=== PATIENT | female | born 1960 | race Caucasian/White ===

== ENCOUNTER 2021-07-09 00:33 | Inpatient (IN) | payer MEDICARE, OTHER ==
[~2021-07-09] VITALS: Ht 154.9 cm; Wt 86.2 kg
--- NOTE | 2021-07-09 00:46 | NUR ---
PT KEILY WITH C/O DIARRHEA AND "FEELING SICK" TEMP:100.7. ADVERTISING SALES CONSULTANT REPORTS SHE HAS "BEEN DRINKING ALCOHOL ALL DAY"
[2021-07-09] MEDS ORDERED: ONDANSETRON HCL/PF 4 MG/2 ML VIAL IVP ONE (01:00)
[2021-07-09] MEDS ORDERED: IV NS 0.9% 1,000 ML BAG IV ONE ×2 (01:00→02:30)
--- NOTE | 2021-07-09 01:18 | NUR ---
FLYING INSTRUCTOR AT BEDSIDE
[2021-07-09] MEDS ORDERED: ONDANSETRON HCL/PF 4 MG/2 ML VIAL ONE (01:19)
--- NOTE | 2021-07-09 01:45 | NUR ---
INITIATED LAC #20G ON NS
[2021-07-09 01:51] LABS: ALANINE AMINOTRANSFERASE 11 U/L (12-78); ALBUMIN 3.3 g/dL (3.4-5.0); ALKALINE PHOSPHATASE 114 U/L (46-116); ASPARTATE AMINOTRANSFERASE 25 U/L (15-37); BILIRUBIN,DIRECT 0.1 mg/dL (0.0-0.2); BILIRUBIN,TOTAL 0.6 mg/dL (0.2-1.0); CALCIUM, SERUM 8.4 mg/dL (8.5-10.1); CARBON DIOXIDE 23 mmol/L (21-32); CHLORIDE 99 mmol/L (98-107); CREATININE 0.5 mg/dL (0.6-1.3); GLUCOSE 144 mg/dL (74-106); LIPASE 899 U/L (73-393); SODIUM SERUM 137 mmol/L (136-145); TOTAL PROTEIN, SERUM 7.8 g/dL (6.4-8.2); UREA NITROGEN, BLOOD 9 mg/dL (7-18)
--- NOTE | 2021-07-09 01:51 | NUR ---
COVID SWAB COLLECTED AND SENT TO LAB PT TAKEN TO CT
--- NOTE | 2021-07-09 01:58 | NUR ---
LACTIC ACID 2.2
[2021-07-09] MEDS ORDERED: PIPERACILLIN /TAZOBACTAM 3.375 G VIAL IV ONE (02:16)
[2021-07-09 02:19] LABS: BASOPHILS # (AUTO) 0.1 K/uL (0.0-0.2); BASOPHILS % (AUTO) 1.2 % (0.0-2.0); EOSINOPHILS % (AUTO) 0.1 % (0.0-6.0); HEMATOCRIT 31 % (33-45); HEMOGLOBIN 9.9 g/dL (11.5-14.8); LYMPHOCYTES # (AUTO) 0.2 K/uL (0.8-4.8); LYMPHOCYTES % (AUTO) 1.9 % (20.0-44.0); MEAN CORPUSCULAR HGB CONC 32 g/dl (31.0-36.0); MEAN CORPUSCULAR VOLUME 73 fL (82-100); MONOCYTES % (AUTO) 0.3 % (2.0-12.0); NEUTROPHILS # (AUTO) 11.6 K/uL (1.8-8.9); NEUTROPHILS % (AUTO) 96.5 % (43.0-81.0); PLATELET COUNT (AUTO) 413 K/uL (150-450); RED BLOOD CELL COUNT(AUTO) 4.23 MIL/uL (4.0-5.2)
[2021-07-09] MEDS ORDERED: PIPERACILLIN /TAZOBACTAM 3.375 G in IV D5W 50 ML IV ONE (02:30)
--- NOTE | 2021-07-09 02:50 | NUR ---
INSERTED STRAIGHT CATH; NO URINE OUT PUT. COVID SWAB COLLECTED AND SENT TO LAB
--- NOTE | 2021-07-09 03:26 | NUR ---
URINE SAMPLE COLLECTED AND SENT TO LAB
[2021-07-09] MEDS ORDERED: ACETAMINOPHEN 325 MG TABLET PO PRN (03:30)
[2021-07-09] MEDS ORDERED: MAGNESIUM HYDROXIDE 30 ML UDC PO PRN (03:30)
[2021-07-09] MEDS: ENOXAPARIN SODIUM 40 MG/0.4 ML DISP.SYRIN SQ SCH (03:30)
[2021-07-09] MEDS ORDERED: IV NS 0.9% 1,000 ML IV PRN (03:30)
[2021-07-09] MEDS ORDERED: MAG HYDROX/AL HYDROX/SIMETH 30 ML UDC PO PRN (03:30)
[2021-07-09] MEDS ORDERED: ONDANSETRON HCL/PF 4 MG/2 ML VIAL IVP PRN (03:30)
[2021-07-09] MEDS ORDERED: Z GUARD REMEDY 2 OZ OINT TP PRN (03:30)
[2021-07-09 04:00] LABS: BILIRUBIN,URINE Negative (NEGATIVE); COLOR,URINE YELLOW (YELLOW); LEUKOCYTE ESTERASE ,URINE Negative (NEGATIVE); NITRITE, URINE Negative (NEGATIVE); PROTEIN,URINE Negative (NEGATIVE); UGLUCOSE Negative (NEGATIVE); UROBILINOGEN,URINE 0.2 EU/dL (0.2)
[2021-07-09] MEDS ORDERED: ACETAMINOPHEN 325 MG TABLET PO ONE (04:00)
[2021-07-09] MEDS ORDERED: LORAZEPAM INJ 2 MG/ML VIAL IV ONE (04:30)
[2021-07-09 04:31] LABS: BACTERIA,URINE Few /HPF (None Seen); SQUAMOUS EPITHELIAL CELL,UR Few /HPF (None Seen); WBC,URINE 0-2 /HPF (0-3)
[2021-07-09 04:32] LABS: MUCUS,URINE Few /LPF (None Seen)
[2021-07-09] MEDS ORDERED: ENOXAPARIN SODIUM 40 MG/0.4 ML DISP.SYRIN SQ ONE (05:30)
[2021-07-09] MEDS ORDERED: MAG HYDROX/AL HYDROX/SIMETH 30 ML UDC ONE (05:37)
--- NOTE | 2021-07-09 05:40 | NUR ---
PT C/O STOMACH CRAMPING ADMINISTERED MAALOX ORDERED.
[2021-07-09] MEDS ORDERED: PANTOPRAZOLE 40 MG TABLET.DR PO SCH (07:30)
--- NOTE | 2021-07-09 07:52 | NUR ---
The patient is sleeping in bed#7. Responsive to verbal stimuli. Respiration regular and unlabored. In no apparent distress. Attached to the monitor.
[2021-07-09] MEDS ORDERED: PHARMACY ADD 1 AMP MVI TO IVF DAILY ONE BAG XX PRN (10:00)
--- NOTE | 2021-07-09 10:10 | NUR ---
Dr Bocanegra is made aware of lactic acid level of 3.2. Per Dr Bocanegra IVNS fluids rates is changed from 75mL/hr to 100 mL/hr prn. The order is read back, verified. Noted and carried out.
[2021-07-09] MEDS: MVI ADULT 10ML VIAL = 1AMP 10 ML in IV NS 0.9% 1,000 ML IV PRN (10:13)
[2021-07-09] MEDS: Thiamine 100 MG in IV D5W 50 ML IV SCH (10:31)
--- NOTE | 2021-07-09 10:35 | NUR ---
Note undone in EDM - 07/09/21 at 1037 by ENOCH IV removed. Catheter intact and site benign. Pressure and 4x4 applied to site. No bleeding noted.Patient discharged to home in stable condition. Written and verbal after care instructions given. Patient verbalizes understanding of instruction.
[2021-07-09] MEDS: PIPERACILLIN /TAZOBACTAM 3.375 G in IV D5W 100 ML IV SCH ×2 (11:06→20:22)
[2021-07-09] MEDS: Folic acid 1 MG in IV D5W 50 ML IV SCH (11:06)
[2021-07-09] MEDS ORDERED: LORAZEPAM INJ 2 MG/ML VIAL ONE (11:08)
--- NOTE | 2021-07-09 11:45 | NUR ---
NPO ORDER PER DR REED. THE ORDER IS READ BACK, VERIFIED. NOTED AND CARRIED OUT.
--- NOTE | 2021-07-09 13:11 | NUR ---
PT IN BED RESTING WITH EYES CLOSED. PT IS EASILY ARROUSABLE. NAD NOTED.
--- NOTE | 2021-07-09 17:05 | NUR ---
room 103
--- NOTE | 2021-07-09 17:15 | NUR ---
report given to mimi ansari for brielle
--- NOTE | 2021-07-09 18:29 | NUR ---
pt [facility] and rn at bedside w/ acls protocol. nad noted
--- NOTE | 2021-07-09 18:33 | NUR ---
RN NOTES RECEIVED PT FROM ER, DX SEPSIS, AOX 3, FOUL MOUTHED AND VERBALLY ABUSIVE, MADE COMFORTABLE. PT IS NPO, VITAL SIGNS TAKEN AND RECORDED. WILL ENDORSE TO NEXT SHIFT FOR MATTHEW
[2021-07-09 18:36] VITALS: BP 161/82
--- NOTE | 2021-07-09 21:00 | NUR ---
RN NOTE RECEIVED PT SLEEPING AROUSES WITH VERBAL TACTILE. PT LIMITED TO CONVERSATION, DOES NOT WANT TO BE BOTHERED, LIMITED INFORMATION/HISTORY WAS GIVEN. REFUSES VITAL SIGNS. EXPLAINED RISKS AND BENEFITS. NO S/SX OF DISTRESS NOTED. COMPLAINS OF ABDOMINAL PAIN, REFUSED TO TAKE TYLENOL. PT IS CONTINENT TO BOTH BOWEL AND BLADDER, USES BEDPAN, PER PT SHE IS UNABLE TO WALK DUE TO HIP REPLACEMENT, BUT ABLE TO TURN HERSELF IN THE BED. NEW MIDLINE ON ADAMS WAS INSERTED, FLUSHES WELL. ALL SAFETY MEASURES IN PLACE PER PROTOCOL. CALL LIGHT WITHIN REACH. Addendum: 07/09/21 at 2232 by HUMPHREY KAM RN CORRECTION, MIDLINE ON LEFT UPPER ARM.
[2021-07-09] MEDS: LORAZEPAM INJ 2 MG/ML VIAL IV PRN (22:22)
[2021-07-09] MEDS: IV NS 0.9% 1,000 ML IV PRN (22:30)
[2021-07-10] MEDS: PIPERACILLIN /TAZOBACTAM 3.375 G in IV D5W 100 ML IV SCH ×3 (02:57→18:18)
[2021-07-10] MEDS: ENOXAPARIN SODIUM 40 MG/0.4 ML DISP.SYRIN SQ SCH (03:23)
[2021-07-10 04:00] VITALS: BP 135/84
[2021-07-10] MEDS: LORAZEPAM INJ 2 MG/ML VIAL IV PRN ×4 (05:30→21:29)
[2021-07-10 06:59] LABS: BASOPHILS # (AUTO) 0.1 K/uL (0.0-0.2); BASOPHILS % (AUTO) 0.8 % (0.0-2.0); EOSINOPHILS % (AUTO) 3.4 % (0.0-6.0); HEMATOCRIT 26 % (33-45); HEMOGLOBIN 8.2 g/dL (11.5-14.8); LYMPHOCYTES # (AUTO) 0.9 K/uL (0.8-4.8); MEAN CORPUSCULAR HGB CONC 32 g/dl (31.0-36.0); MEAN CORPUSCULAR VOLUME 74 fL (82-100); MONOCYTES # (AUTO) 0.4 K/uL (0.1-1.30); MONOCYTES % (AUTO) 6.9 % (2.0-12.0); NEUTROPHILS # (AUTO) 4.4 K/uL (1.8-8.9); NEUTROPHILS % (AUTO) 73.9 % (43.0-81.0); PLATELET COUNT (AUTO) 322 K/uL (150-450); RED BLOOD CELL COUNT(AUTO) 3.51 MIL/uL (4.0-5.2); WHITE BLOOD COUNT (AUTO) 5.9 K/uL (4.3-11.0)
--- NOTE | 2021-07-10 07:00 | NUR ---
RN NOTE PT ABLE TO MAKE NEEDS KNOWN. PT REFUSED TO HAVE SKIN PROBLEM BE PICTURE TAKEN. PT UNCOOPERATIVE AT FIRST, GETTING MAD AT ANY THING, SCREAMING TO STAFFS AND BEING RUDE. PT CALMED DOWN, WAS ABLE TO GET VITAL SIGNS, DUE MEDS WERE GIVEN. REMAIN AFEBRILE. PT REQUESTED FOR ATIVAN FOR ANXIETY/AGITATION. WAS GIVEN ORDERED. CONTINUE ON IVFLUIDS, 1 BAG OF MVI WAS GIVEN. ALL SAFETY MEASURES MAINTAINED. WILL ENDORSE TO NEXT SHIFT NURSE FOR MATTHEW.
[2021-07-10 07:10] LABS: ALBUMIN 2.5 g/dL (3.4-5.0); BILIRUBIN,TOTAL 0.5 mg/dL (0.2-1.0); CALCIUM, SERUM 7.9 mg/dL (8.5-10.1); CREATININE 0.5 mg/dL (0.6-1.3); PHOSPHORUS 3.3 mg/dL (2.5-4.9); POTASSIUM 3.3 mmol/L (3.5-5.1)
[2021-07-10 07:18] LABS: THYROID STIMULATING HORMONE 2.005 uIU/mL (0.358-3.74)
--- NOTE | 2021-07-10 07:20 | NUR ---
RN NOTE PATIENT OBSERVED IN BED AWAKE , ALERT AND ORIENTED X4 ABLE TO VERBALIZE NEEDS, NPO AT THIS TIME WILL CLARIFY WITH MD, WITH LEFT UPPER ARM MIDLINE, PATENT AND INFUSING WEL PATIENT ON NS @75CC/HR. SAFETY MEASURE OBSERVED, BED WHEELS LOCK, CALL LIGHT WITHIN REACH, WILL CONTINUE TO MONITOR.
[2021-07-10 08:00] VITALS: BP 135/84
[2021-07-10] MEDS: PANTOPRAZOLE 40 MG VIAL IV SCH (09:41)
[2021-07-10] MEDS: POTASSIUM CL. PREMIX PERIPHER. 50 ML IV SCH ×3 (09:41→12:55)
[2021-07-10] MEDS: IV NS 0.9% 1,000 ML IV PRN ×2 (10:28→18:02)
[2021-07-10] MEDS: MVI ADULT 10ML VIAL = 1AMP 10 ML in IV NS 0.9% 1,000 ML IV PRN (11:23)
[2021-07-10] MEDS: Folic acid 1 MG in IV D5W 50 ML IV SCH (11:23)
[2021-07-10] MEDS: Thiamine 100 MG in IV D5W 50 ML IV SCH (11:47)
[2021-07-10 12:28] LABS: BAND % (MANUAL) 2 % (0.0-5.0); EOSINOPHILS % (MANUAL) 3 % (0-4); LYMPHOCYTES % (MANUAL) 13 % (16-48); MONOCYTES % (MANUAL) 3 % (0-11.0); NEUTROPHILS % (MANUAL) 79 (42-76)
[2021-07-10 16:00] VITALS: BP 142/92
--- NOTE | 2021-07-10 18:44 | NUR ---
RN NOTE PATIENT OBSERVED IN BED AWAKE , ALERT AND ORIENTED X4 ABLE TO VERBALIZE NEEDS, UPGRADED TO FULL LIQUID DIET AT THIS TIME TOLERATING WELL POTASSIUM REPLACE PER MD, PATIENT SEEN BY DR. REED UPDATED REGARDING PATIENT CONDITION, WITH LEFT UPPER ARM MIDLINE, PATENT AND INFUSING WELL PATIENT ON NS @100CC/HR. ON MVI IV 75CC/HR, SAFETY MEASURE OBSERVED, BED WHEELS LOCK, CALL LIGHT WITHIN REACH, WILL CONTINUE TO MONITOR. WILL ENDORSE TO NOC SHIFT.
--- NOTE | 2021-07-10 19:30 | NUR ---
RN NOTE PATIENT ALERT AND ORIENTED X3, ABLE TO MAKE NEEDS KNOWN. ON ROOM AIR, O2 SAT 98%. NO SIGNS OF ACUTE RESPIRATORY DISTRESS. DENIES ANY PAIN OR DISCOMFORT. IV ACCESS ON RIGHT FOREARM AND EDER PICC LINE PATENT AND INTACT. BED LOCKED AND IN LOWEST POSITION. CALL LIGHT WITHIN REACH. ALL NEEDS ANTICIPATED.
[2021-07-10 20:00] VITALS: BP 136/78
[2021-07-10] MEDS ORDERED: ZOLPIDEM TARTRATE 5 MG TABLET PO ONE (23:30)
[2021-07-11] MEDS: LORAZEPAM INJ 2 MG/ML VIAL IV PRN ×6 (01:24→20:27)
[2021-07-11] MEDS: PIPERACILLIN /TAZOBACTAM 3.375 G in IV D5W 100 ML IV SCH ×3 (01:28→17:17)
[2021-07-11 04:00] VITALS: BP 148/98
[2021-07-11] MEDS: ENOXAPARIN SODIUM 40 MG/0.4 ML DISP.SYRIN SQ SCH (04:08)
--- NOTE | 2021-07-11 06:58 | NUR ---
RN NOTE PATIENT ALERT AND ORIENTED X3. ON ROOM AIR, O2 SAT 98%. NO SOB NOTED. DENIES ANY PAIN OR DISCOMFORT. IV ACCESS ON RIGHT FOREARM AND EDER PICC LINE PATENT AND INTACT RUNNING NS @ 100ML/HR. PATIENT AGGRESSIVE AND AGITATED THROUGH OUT THE NIGHT, AND REQUESTED ATIVAN. WITH RELIEF. BED LOCKED AND IN LOWEST POSITION. CALL LIGHT WITHIN REACH. WILL ENDORSE TO AM SHIFT.
[2021-07-11] MEDS: PANTOPRAZOLE 40 MG VIAL IV SCH (07:51)
--- NOTE | 2021-07-11 08:54 | NUR ---
RN OPENING NOTE PATIENT A/O X3. O2 SAT 98% IN ROOM AIR. NO SOB OR DISTRESS NOTED PT STATES SHE HAS 0 PAIN AT THIS TIME. IV ACCESS ON RIGHT FOREARM AND EDER PICC LINE PATENT AND INTACT RUNNING NS @ 100ML/HR. PT ATTEMPTED TO PULL OUT HER IV, STATES SHE DOES NOT WANT TO BE CONNECTED. RN EXPLAINED RISKS, PT STILL REFUSED NSS. PATIENT AGGRESSIVE AND AGITATED, ATIVAN GIVEN, WITH GOOD RESULTS., BED LOCKED AND IN LOWEST POSITION. CALL LIGHT WITHIN REACH. WILL CONTINUE TO MONITOR.
[2021-07-11 12:00] VITALS: BP 140/92
[2021-07-11 12:44] LABS: BASOPHILS % (AUTO) 0.5 % (0.0-2.0); EOSINOPHILS % (AUTO) 5.1 % (0.0-6.0); HEMATOCRIT 28 % (33-45); HEMOGLOBIN 8.8 g/dL (11.5-14.8); LYMPHOCYTES # (AUTO) 0.7 K/uL (0.8-4.8); LYMPHOCYTES % (AUTO) 14.5 % (20.0-44.0); MEAN CORPUSCULAR HGB CONC 31 g/dl (31.0-36.0); MEAN CORPUSCULAR VOLUME 74 fL (82-100); MONOCYTES # (AUTO) 0.3 K/uL (0.1-1.30); MONOCYTES % (AUTO) 6.5 % (2.0-12.0); NEUTROPHILS # (AUTO) 3.6 K/uL (1.8-8.9); NEUTROPHILS % (AUTO) 73.4 % (43.0-81.0); PLATELET COUNT (AUTO) 341 K/uL (150-450); WHITE BLOOD COUNT (AUTO) 4.9 K/uL (4.3-11.0)
[2021-07-11 12:59] LABS: CALCIUM, SERUM 8.6 mg/dL (8.5-10.1); CREATININE 0.5 mg/dL (0.6-1.3); POTASSIUM 3.9 mmol/L (3.5-5.1)
[2021-07-11] MEDS: THIAMINE HCL 100 MG TABLET PO SCH (13:05)
[2021-07-11] MEDS: FOLIC ACID 1 MG TABLET PO SCH (13:05)
[2021-07-11] MEDS: MULTIVITAMINS,THERAGRAN 1 UDTAB TABLET PO SCH (13:05)
--- NOTE | 2021-07-11 16:25 | NUR ---
SS consult: SS requested for Homelessness. The pt. is a 61 year old female. SW conducted interview over the phone and pt. was irritable, agitated and screaming responses.The pt. is A&O x 4 and remained compliant with interview. Pt. stated she uses "[facility], [place] & [facility]". SW offered rehab and pt. refused. Pt. denies SI/HI and denies hallucinations. Pt. is requesting SNF placement, refusing group home placement and refusing voluntary psych placement. Pt. is irritable and non-compliant with Wellbutrin and Latuda by choice but A&O. I spoke with Elaine PIERSON and pt. has been accepted to [facility] and will be D/C there when ready. Pt. refused homeless resources and refused to sign homeless waiver.
[2021-07-11 18:04] VITALS: BP 118/41
--- NOTE | 2021-07-11 18:11 | NUR ---
RN NOTES; PT TRANSFERRED TO ROOM 317 PER PROTOCOL. BEDSIDE REPORT GIVEN TO FRANCA LAM FOR MATTHEW.
--- NOTE | 2021-07-11 19:15 | NUR ---
RN OPENING NOTES PT AWAKE IN BED, A/OX3. BREATHING EVEN/UNLABORED, ON ROOM AIR. DENIES ANY PAIN OR DISCOMFORT AT THIS TIME. IV PICC LINE ON EDER INTACT, PATENT, ON NS @100ML/HR. PT USES BEDSIDE COMMODE. NO ACUTE DISTRESS NOTED. SAFETY MEASURES IN PLACE, BED IN LOWEST LOCKED POSITION, S/R UP X2, CALL LIGHT WITHIN REACH. WILL CONTINUE TO MONITOR.
--- NOTE | 2021-07-11 19:39 | NUR ---
MS/RN CLOSING NOTE PATIENT A/O X3. O2 SAT 98% IN ROOM AIR. NO SOB OR DISTRESS NOTED PT STATES SHE HAS 0 PAIN AT THIS TIME. IV ACCESS ON EDER PICC LINE PATENT AND INTACT RUNNING NS @ 100ML/HR. BED LOCKED AND IN LOWEST POSITION. CALL LIGHT WITHIN REACH. WILL ENDORSE TO THE NEXT SHIFT FOR MATTHEW.
[2021-07-11 20:00] VITALS: BP 145/99
--- NOTE | 2021-07-11 22:00 | NUR ---
RN NOTE NOTED ADAMS MIDLINE CATH DISLODGED, NO BLEEDING ON SITE NOTED. INSERTED NEW IV SL ON R-HAND #22G X1, WITH GOOD BLOOD RETURN. ENRIQUE.WELL.
[2021-07-12] MEDS: PIPERACILLIN /TAZOBACTAM 3.375 G in IV D5W 100 ML IV SCH ×3 (01:10→18:02)
[2021-07-12] MEDS: LORAZEPAM INJ 2 MG/ML VIAL IV PRN ×7 (01:34→21:11)
[2021-07-12] MEDS: ENOXAPARIN SODIUM 40 MG/0.4 ML DISP.SYRIN SQ SCH (03:34)
--- NOTE | 2021-07-12 05:35 | NUR ---
RN NOTE PT REFUSED BLOOD DRAW AFTER 2ND ATTEMPT BY FULL STACK PHP DEVELOPER
--- NOTE | 2021-07-12 07:10 | NUR ---
RN CLOSING NOTES PT RESTING IN BED, A/OX3, EASILY AROUSABLE TO STIMULI. DENIES ANY PAIN OR DISCOMFORT. ON ROOM AIR, DENIES SOB. BREATHING EVEN/UNLABORED. PT USES BEDSIDE COMMODE. NO ACUTE DISTRESS NOTED. SAFETY MEASURES IN PLACE, BED IN LOWEST LOCKED POSITION, S/R UP X2, CALL LIGHT WITHIN REACH. ENDORSED TO NEXT SHIFT NURSE.
--- NOTE | 2021-07-12 07:28 | NUR ---
RN OPENING NOTE- PT ASLEEP IN BED, EASILY AWAKENED . ORIENTED TO PERSON PLACE PURPOSE. . BREATHING EVEN/UNLABORED, ON ROOM AIR. DENIES ANY PAIN OR DISCOMFORT AT THIS TIME. IV #22 RT WRIST/HAND, PATENT, ON NS @100ML/HR. PT USES BEDSIDE COMMODE. NO ACUTE DISTRESS NOTED. SAFETY MEASURES IN PLACE, BED IN LOWEST LOCKED POSITION, S/R UP X2, CALL LIGHT WITHIN REACH. WILL CONTINUE TO MONITOR.
[2021-07-12] MEDS: PANTOPRAZOLE 40 MG TABLET.DR PO SCH (08:29)
[2021-07-12] MEDS: THIAMINE HCL 100 MG TABLET PO SCH (08:30)
[2021-07-12] MEDS: MULTIVITAMINS,THERAGRAN 1 UDTAB TABLET PO SCH (08:31)
[2021-07-12] MEDS: FOLIC ACID 1 MG TABLET PO SCH (08:31)
[2021-07-12 11:13] LABS: BASOPHILS % (AUTO) 0.2 % (0.0-2.0); EOSINOPHILS % (AUTO) 4.1 % (0.0-6.0); HEMATOCRIT 30 % (33-45); HEMOGLOBIN 9.4 g/dL (11.5-14.8); LYMPHOCYTES # (AUTO) 0.6 K/uL (0.8-4.8); LYMPHOCYTES % (AUTO) 9.4 % (20.0-44.0); MEAN CORPUSCULAR HGB CONC 32 g/dl (31.0-36.0); MEAN CORPUSCULAR VOLUME 74 fL (82-100); MONOCYTES # (AUTO) 0.4 K/uL (0.1-1.30); MONOCYTES % (AUTO) 5.8 % (2.0-12.0); NEUTROPHILS # (AUTO) 4.9 K/uL (1.8-8.9); NEUTROPHILS % (AUTO) 80.5 % (43.0-81.0); PLATELET COUNT (AUTO) 363 K/uL (150-450); RED BLOOD CELL COUNT(AUTO) 4.03 MIL/uL (4.0-5.2); WHITE BLOOD COUNT (AUTO) 6.1 K/uL (4.3-11.0)
[2021-07-12 11:34] LABS: CALCIUM, SERUM 8.1 mg/dL (8.5-10.1); CREATININE 0.6 mg/dL (0.6-1.3); POTASSIUM 3.7 mmol/L (3.5-5.1)
--- NOTE | 2021-07-12 11:35 | NUR ---
RN NOTE- ANXIOUS. ATIVAN 1 MG ADMINISTERED
--- NOTE | 2021-07-12 14:45 | NUR ---
RN NOTE- ANXIETY. YELLING. ATIVAN 1 MG ADMINISTERED
[2021-07-12] MEDS: MORPHINE SULFATE INJ 2 MG/ML DISP.SYRIN IV PRN ×2 (15:53→20:09)
--- NOTE | 2021-07-12 16:00 | NUR ---
RN NOTE- PT W VOMITING SMALL AMOUNT AND ALSO INCREASING ABD PAIN. DR REED NOTIFIED. ORDERED DIET CHANGE TO CLEAR LIQUIDS AND MORPHINE 2 MG Q4H PRN
--- NOTE | 2021-07-12 18:16 | NUR ---
RN NOTE- ANXIETY RETLESSNESS. ATIVAN 1 MG IV ADMINISTERED. DIDN'T SCAN. WASTED ATIVAN 1MG W RENETTA LAM
--- NOTE | 2021-07-12 18:32 | NUR ---
RN CLOSING NOTE- PT ORIENTED TO PERSON PLACE PURPOSE. . BREATHING EVEN/UNLABORED, ON ROOM AIR. DENIES ANY PAIN OR DISCOMFORT AT THIS TIME. IV #22 RT WRIST/HAND, PATENT, ON NS @100ML/HR. PT USES BEDSIDE COMMODE. NO ACUTE DISTRESS NOTED. SAFETY MEASURES IN PLACE, BED IN LOWEST LOCKED POSITION, S/R UP X2, CALL LIGHT WITHIN REACH. WILL CONTINUE TO MONITOR
[2021-07-12 20:00] VITALS: BP 128/77
--- NOTE | 2021-07-12 20:00 | NUR ---
RN NOTES RECEIVED PATIENT IN BED, ALERT/ORIENTED X3, ROOM AIR, ABDOMINAL PAIN, CLEAR LIQUID DIET, IRRITABLE, EDUCATED ON PAIN MEDICATION AND ATIVAN FREQUENCY. FALL PRECAUTION, REMINDED TO CALL FOR ASSISTANCE WHEN GETTING OUT OF BED.
[2021-07-13] MEDS: PIPERACILLIN /TAZOBACTAM 3.375 G in IV D5W 100 ML IV SCH ×2 (01:21→09:41)
[2021-07-13] MEDS: MORPHINE SULFATE INJ 2 MG/ML DISP.SYRIN IV PRN ×3 (01:21→12:48)
[2021-07-13] MEDS: ENOXAPARIN SODIUM 40 MG/0.4 ML DISP.SYRIN SQ SCH (03:06)
[2021-07-13] MEDS: LORAZEPAM INJ 2 MG/ML VIAL IV PRN ×3 (03:07→13:43)
[2021-07-13 06:30] LABS: BASOPHILS % (AUTO) 0.1 % (0.0-2.0); EOSINOPHILS % (AUTO) 3.5 % (0.0-6.0); HEMATOCRIT 29 % (33-45); HEMOGLOBIN 9.1 g/dL (11.5-14.8); LYMPHOCYTES # (AUTO) 1.2 K/uL (0.8-4.8); LYMPHOCYTES % (AUTO) 13.8 % (20.0-44.0); MEAN CORPUSCULAR HGB CONC 32 g/dl (31.0-36.0); MEAN CORPUSCULAR VOLUME 75 fL (82-100); MONOCYTES # (AUTO) 0.7 K/uL (0.1-1.30); MONOCYTES % (AUTO) 8.7 % (2.0-12.0); NEUTROPHILS # (AUTO) 6.2 K/uL (1.8-8.9); NEUTROPHILS % (AUTO) 73.9 % (43.0-81.0); PLATELET COUNT (AUTO) 351 K/uL (150-450); RED BLOOD CELL COUNT(AUTO) 3.86 MIL/uL (4.0-5.2); WHITE BLOOD COUNT (AUTO) 8.4 K/uL (4.3-11.0)
--- NOTE | 2021-07-13 06:38 | NUR ---
RN NOTES ALERT/ORIENTED X3, FORGETFUL, WITH EPISODES OF AGITATION, ON CLEAR LIQUID DIET, TOLERATING DIET, WITH ABDOMINAL PAIN, RELIEVED BY MORPHINE, ATIVAN FOR ANXIETY. NO VOMITING. VOIDING VIA BSC, GENERALIZED WEAKNESS, ABLE TO TRANSFER FROM BED TO BSC, UNABLE TO AMBULATE. CONTINUE IVF AT 100 ML/HR, ZOSYN Q8HRS, FOR SW CONSULT, REQUESTING SNF PLACEMENT.
[2021-07-13 06:45] LABS: CALCIUM, SERUM 8.5 mg/dL (8.5-10.1); CREATININE 0.5 mg/dL (0.6-1.3); POTASSIUM 3.9 mmol/L (3.5-5.1)
[2021-07-13] MEDS ORDERED: METR500T PO (07:35)
[2021-07-13] MEDS ORDERED: MULT-24 PO (07:35)
[2021-07-13] MEDS ORDERED: ONDA4VIA23 IVP (07:35)
[2021-07-13] MEDS ORDERED: Thiamine HCL PO (07:35)
[2021-07-13] MEDS ORDERED: LEVO500T90 PO (07:35)
[2021-07-13] MEDS ORDERED: Folic Acid PO (07:35)
--- NOTE | 2021-07-13 07:51 | NUR ---
MS RN OPENING NOTES RECEIVED PATIENT IN BED, AWAKE, A/O X3. PATIENT ON ROOM AIR; BREATHING EVEN AND UNLABORED AT THIS TIME; NO S/S OF DISTRESS. COMPLAINING OF MILD PAIN. IV ACCESS ON L HAND G #24 PRESENT AND INTACT RUNNING NS @ 100 MLS/HR. SAFETY PRECAUTIONS IN PLACE; BED IN LOW POSITION AND LOCKED, RAILS UP X2, CALL LIGHT WITHIN REACH. WILL CONTINUE TO MONITOR PATIENT.
[2021-07-13 08:00] VITALS: BP 130/69
[2021-07-13] MEDS: FOLIC ACID 1 MG TABLET PO SCH (08:31)
[2021-07-13] MEDS: THIAMINE HCL 100 MG TABLET PO SCH (08:31)
[2021-07-13] MEDS: PANTOPRAZOLE 40 MG TABLET.DR PO SCH (08:31)
[2021-07-13] MEDS: MULTIVITAMINS,THERAGRAN 1 UDTAB TABLET PO SCH (08:32)
--- NOTE | 2021-07-13 08:37 | NUR ---
MS RN NOTES PATIENT COMPLAINING OF PAIN 8 OUT OF 10. REQUESTING PRN PAIN MEDICATION. PRN MORPHINE ADMINISTERED. WILL REASSESS.
--- NOTE | 2021-07-13 12:51 | NUR ---
MS RN NOTES PATIENT COMPLAINING OF PAIN 8 OUT OF 10. REQUESTING PRN PAIN MEDICATION. PRN MORPHINE ADMINISTERED. WILL REASSESS.
[2021-07-13 16:04] VITALS: BP 134/69
--- NOTE | 2021-07-13 17:30 | NUR ---
MEDICAL STAFF DIRECTOR NOTES PATIENT DISCHARGED TO SNF IN MEDICALLY STABLE CONDITION. PATIENT A/O X3, AWAKE, AND ABLE TO MAKE NEEDS KNOWN. ALL DISCHARGE DOCUMENTATION READY AND SIGNED BY PATIENT. BELONGINGS ACCOUNTED FOR AND SIGNED BY PATIENT WELL. IV ACCESS REMOVED PRIOR TO PATIENT LEAVING THE UNIT. WRISTBAND REMOVED WELL. FACILITY CALLED AND REPORT GIVEN TO GENARO ROSE. PATIENT LEFT THE UNIT VIA GURNEY ACCOMPANIED BY 2 ground intelligence officer.
== END 2021-07-13 17:30 | DRG 391 ==
LOC: ER 00:35 → TRANSITION 08:45 → TELE1 17:53 → MEDSG1 18:20 → MED 07-11 17:59
PROVIDERS: ADMIT Family Medicine; ATTEND Family Medicine
PROC: 05HF33Z Insertion of Infusion Device into Left Cephalic Vein, Percutaneous Approach (ICD-10-PCS; principal; 2021-07-09)
DX: A09 Infectious gastroenteritis and colitis, unspecified (principal); K85.90 Acute pancreatitis without necrosis or infection, unspecified; E44.1 Mild protein-calorie malnutrition; E87.2 Acidosis; D50.9 Iron deficiency anemia, unspecified; Z85.820 Personal history of malignant melanoma of skin; Z96.653 Presence of artificial knee joint, bilateral; Z96.643 Presence of artificial hip joint, bilateral; J45.909 Unspecified asthma, uncomplicated; I10 Essential (primary) hypertension; F10.10 Alcohol abuse, uncomplicated; Z20.822 Contact with and (suspected) exposure to COVID-19; Z59.0 Homelessness; E66.9 Obesity, unspecified; Y90.3 Blood alcohol level of 60-79 mg/100 ml; E83.51 Hypocalcemia; K42.9 Umbilical hernia without obstruction or gangrene; Z98.84 Bariatric surgery status; Z68.35 Body mass index [BMI] 35.0-35.9, adult; R73.9 Hyperglycemia, unspecified
CPT/HCPCS: 36410; 36415; 71045-TC; 80048-TC; 80053-TC; 80061-TC; 80076-TC; 81001; 83605-TC; 83690-TC; 83735-TC; 84100-TC; 84443-TC; 84484-TC; 85025-TC; 87040-TC; 87081-TC; 87086-TC; C9113; C9803; G0378; G0480; J1650; J2060; J2270; J2405; J2543; J3411; J3480; J3490; J7030; J7050; J7060; U0003